=== PATIENT | female | born 1975 | race Native Hawaiian/Other Pacific Islander ===

== ENCOUNTER 2022-02-13 22:50 | Emergency (ER) | payer MEDICARE ==
[~2022-02-13] VITALS: Ht 165.1 cm; Wt 93.4 kg
[~2022-02-13 22:50] MED LIST: ALBUTEROL0.09 MG/A2 IH; FISH OIL500 M1 PO; FLEXI JOINT TA1 EACH PO; HYALURONIC ACID PO; KEFLEX500 MG PO; KLONOPIN0.5 MG PO; KLONOPIN2 M1 PO; MEDROL DOSEPAK4 MG PO; MOTRIN800 MG PO; NAPROSYN500 MG PO; NKHM; PREDNISONE10 MG PO; REGLAN10 MG PO; SAW PALMETTO 101 SGL PO; SINGULAIR10 MG PO; TRAMADOL HCL50 MG PO; TYLENOL W/CODEI1 TA2 PO; VIBRAMYCIN100 MG PO; ZITHROMAX Z PA250 MG PO; [UNRECOGNIZED DRUG - CODE] MC
[2022-02-13] MEDS ORDERED: LATU20TA PO (23:00)
[2022-02-13] MEDS ORDERED: LAMICTAL100 MG PO (23:00)
[2022-02-13] MEDS ORDERED: PREDNISONE20 M1 PO (23:25)
[2022-02-13] MEDS ORDERED: SEPTDS PO (23:25)
[2022-02-13] MEDS ORDERED: CEPHALEXIN500 M1 PO (23:25)
== END 2022-02-13 23:36 | disposition home or self-care (01) ==
LOC: ED 22:50
DX: L03.116 Cellulitis of left lower limb (principal); Z79.899 Other long term (current) drug therapy